=== PATIENT | female | born 1945 | race Caucasian/White ===

== ENCOUNTER 2021-10-07 08:59 | Emergency (ER) | payer MEDICARE, OTHER ==
[2021-10-07 09:06] VITALS: BP 109/80
[2021-10-07] MEDS ORDERED: PREDNISONE50 MG PO (10:41)
== END 2021-10-07 10:56 | disposition home or self-care (01) ==
LOC: ED 08:59
DX: L25.9 Unspecified contact dermatitis, unspecified cause (principal)